=== PATIENT | female | born 1965 | race Hispanic/Latino ===

== ENCOUNTER 2021-05-11 16:32 | Emergency (ER) | payer MEDICARE ==
[~2021-05-11] VITALS: Ht 165.1 cm; Wt 90.7 kg
[2021-05-11] MEDS ORDERED: KETOROLAC TROMETHAMINE 30 MG/ML VIAL IV STA (17:38)
[2021-05-11] MEDS ORDERED: DIPHENHYDRAMINE HCL 25 MG CAP PO ONE (17:45)
[2021-05-11] MEDS ORDERED: METOCLOPRAMIDE HCL 10 MG/2ML VIAL IV ONE (17:45)
[2021-05-11] MEDS ORDERED: SODIUM CHLORIDE 0.9% 1000ML 1,000 ML IV SCH (17:45)
[2021-05-11 18:02] LABS: BASOPHILS % 0.6 % (0.0-1.0); EOSINOPHILS % 0.5 % (0.0-6.0); HEMATOCRIT 44.8 % (34.2-44.1); HEMOGLOBIN 14.6 g/dL (12.0-16.0); LYMPHOCYTES # (AUTO) 1.6 (1.0-3.2); LYMPHOCYTES % 23.9 % (18.0-39.1); MEAN CORPUSCULAR HEMOGLOBIN 31.7 pg (28-32); MEAN CORPUSCULAR HGB CONC 32.6 g/dL (31-35); MEAN CORPUSCULAR VOLUME 97.2 fL (81-99); MONOCYTES # (AUTO) 0.3 (0.2-0.8); MONOCYTES % 5.1 % (4.4-11.3); NEUTROPHILS # (AUTO) 4.5 (2.1-6.9); NEUTROPHILS % 69.6 % (38.7-80.0); PLATELET COUNT 240 x10e3/uL (140-360); RED BLOOD COUNT 4.61 x10e6/uL (3.6-5.1); RED CELL DISTRIBUTION WIDTH 13.2 % (11.7-14.4)
[2021-05-11 18:17] LABS: ALBUMIN 4.3 g/dL (3.5-5.0); ANION GAP 13.8 mmol/L (8-16); CALCIUM 9.9 mg/dL (8.4-10.2); CREATININE, SERUM 0.84 mg/dL (0.57-1.11); POTASSIUM 3.8 mmol/L (3.5-5.1)
[2021-05-11 18:57] VITALS: BP 119/70
== END 2021-05-11 19:04 | disposition home or self-care (01) ==
LOC: ER 16:57
DX: R51.9 Headache, unspecified (principal); Z86.73 Personal history of transient ischemic attack (TIA), and cerebral infarction without residual deficits
CPT/HCPCS: 36415; 70450; 80053; 85025; 99284; J1885; J2765; J7030

== ENCOUNTER → 2021-11-04 | Outpatient (CLI) | payer MEDICARE | LOC: MRI 12:33 | PROVIDERS: ATTEND Family Medicine | DX: M75.41 Impingement syndrome of right shoulder (principal) ==

== ENCOUNTER 2023-05-03 11:17 | Emergency (ER) | payer MEDICARE ==
[~2023-05-03] VITALS: Ht 165.1 cm; Wt 90.7 kg
[2023-05-03] MEDS ORDERED: KETOROLAC TROMETHAMINE 30 MG/ML VIAL IV STA (11:19)
[2023-05-03] MEDS ORDERED: ONDANSETRON HCL INJ 2MG/ML 2ML 2 MG/ML VIAL IV STA (11:19)
[2023-05-03] MEDS ORDERED: SODIUM CHLORIDE 0.9% 1000ML 1,000 ML IV STA (11:19)
[2023-05-03 11:45] LABS: BASOPHILS % 0.6 % (0.0-1.0); EOSINOPHILS # (AUTO) 0.1 (0.0-0.4); EOSINOPHILS % 1.3 % (0.0-6.0); HEMATOCRIT 39.2 % (34.2-44.1); HEMOGLOBIN 13.1 g/dL (12.0-16.0); LYMPHOCYTES # (AUTO) 1.9 (1.0-3.2); LYMPHOCYTES % 29.1 % (18.0-39.1); MEAN CORPUSCULAR HEMOGLOBIN 31.3 pg (28-32); MEAN CORPUSCULAR HGB CONC 33.4 g/dL (31-35); MEAN CORPUSCULAR VOLUME 93.8 fL (81-99); MONOCYTES # (AUTO) 0.4 (0.2-0.8); MONOCYTES % 6.1 % (4.4-11.3); NEUTROPHILS % 62.6 % (38.7-80.0); PLATELET COUNT 186 x10e3/uL (140-360); RED BLOOD COUNT 4.18 x10e6/uL (3.6-5.1); RED CELL DISTRIBUTION WIDTH 13.5 % (11.7-14.4)
[2023-05-03 12:00] LABS: INR 0.83; PROTHROMBIN TIME 11.9 seconds (11.9-14.5)
[2023-05-03 12:01] LABS: PARTIAL THROMBOPLASTIN TIME 29.3 seconds (23.8-35.5)
[2023-05-03 12:06] LABS: ALBUMIN 3.9 g/dL (3.5-5.0); ANION GAP 13.8 mmol/L (8-16); CREATININE, SERUM 0.8 mg/dL (0.57-1.11); POTASSIUM 3.8 mmol/L (3.5-5.1)
[2023-05-03] MEDS ORDERED: SODIUM CHLORIDE 0.9% 100 ML ONE (12:10)
[2023-05-03] MEDS ORDERED: IOPAMIDOL 370 MG/ML 100 ML INFUS..BTL INJ ONE (12:10)
[2023-05-03 12:31] LABS: AMPHETAMINES SCREEN,URINE NEGATIVE (NEGATIVE); BENZODIAZEPINES SCREEN,URINE NEGATIVE (NEGATIVE); CLARITY,URINE CLEAR (CLEAR); COLOR,URINE YELLOW (YELLOW); PHENCYCLIDINE SCREEN,URINE NEGATIVE (NEGATIVE)
[2023-05-03 12:32] LABS: KETONES,URINE NEGATIVE (NEGATIVE); LEUKOCYTE ESTERASE ,URINE NEGATIVE (NEGATIVE); NITRITE,URINE NEGATIVE (NEGATIVE); PROTEIN,URINE DIPSTICK NEGATIVE (NEGATIVE); URINE UROBILINOGEN 0.2 mg/dL (0.2 - 1)
[2023-05-03] MEDS ORDERED: KETOROLAC TROMETHAMINE 30 MG/ML VIAL ONE (12:42)
[2023-05-03 12:45] LABS: BACTERIA,URINE FEW /HPF; EPITHELIAL CELLS,URINE FEW /LPF; RBC,URINE 0-5 /HPF (0-5); WBC,URINE (MAN) 0-5 /HPF (0-5)
[2023-05-03] MEDS ORDERED: DEXAMETHASONE SOD PHOS 10 MG/1 ML VIAL IV ONE (13:30)
[2023-05-03] MEDS ORDERED: METOCLOPRAMIDE HCL 10 MG/2ML VIAL IV ONE (13:30)
[2023-05-03] MEDS ORDERED: DIPHENHYDRAMINE HCL INJ 50 MG/ML VIAL IV ONE (13:30)
[2023-05-03] MEDS ORDERED: SODIUM CHLORIDE 0.9% 500ML 500 ML IV ONE (13:30)
[2023-05-03] MEDS ORDERED: HALOPERIDOL 5 MG TAB PO ONE (14:00)
[2023-05-03] MEDS ORDERED: ONDANSETRON ODT4 MG PO (14:17)
[2023-05-03] MEDS ORDERED: ESGIC 50-325-41 EACH PO (14:17)
[2023-05-03 14:53] VITALS: O2SAT 98
== END 2023-05-03 14:56 | disposition home or self-care (01) ==
LOC: ER 11:30
DX: R51.9 Headache, unspecified (principal); R11.2 Nausea with vomiting, unspecified; E04.1 Nontoxic single thyroid nodule
CPT/HCPCS: 36415; 70496; 70498; 71045; 80053; 80307; 81001; 83880; 84484; 85025; 85610; 85730; 93005; 99284; J1100; J1200; J1885; J2405; J2765; J7030; J7040; J7050; Q9967; U0002

== ENCOUNTER → 2023-09-01 | Outpatient (REF) | payer MEDICARE ==
[~2023-09-01] MED LIST: ESGIC 50-325-41 EACH PO; LORAZEPAM INJ 2 MG/ML VIAL ONE; ONDANSETRON ODT4 MG PO
== END ==
LOC: MRI 08:27
PROVIDERS: ATTEND Family Medicine
DX: M54.12 Radiculopathy, cervical region (principal); M54.51 Vertebrogenic low back pain
CPT/HCPCS: 72141; 72148; J2060

== ENCOUNTER 2023-11-15 00:13 | Emergency (ER) | payer MEDICARE ==
[~2023-11-15] VITALS: Ht 165.1 cm; Wt 90.7 kg
[~2023-11-15 00:13] MED LIST changes: -LORAZEPAM INJ 2 MG/ML VIAL ONE
[2023-11-15 01:42] VITALS: PULSE 78; RESP 17; TEMP 98.2; O2SAT 97
== END 2023-11-15 01:44 | disposition home or self-care (01) ==
LOC: ER 00:16
DX: R05.9 Cough, unspecified (principal); J06.9 Acute upper respiratory infection, unspecified; Z11.52 Encounter for screening for COVID-19
CPT/HCPCS: 71045; 87400; 99283; U0002